=== PATIENT | female | born 1985 | race Caucasian/White ===

== ENCOUNTER 2021-01-31 16:54 | Emergency (ER) | payer OTHER ==
[2021-01-31 18:01] LABS: HEMOGLOBIN 14.3 gm/dl (12.3-15.3); RED BLOOD COUNT 4.98 M/UL (4.00-5.10)
[2021-01-31 18:14] LABS: BUN/CREATININE RATIO 30 (0-10)
[2021-01-31] MEDS ORDERED: ZOFRAN ODT 4 MG4 MG GT (20:15)
== END 2021-01-31 20:30 | disposition home or self-care (01) ==
LOC: ER1 16:54
PROVIDERS: Family Medicine
DX: R11.2 Nausea with vomiting, unspecified (principal); R74.8 Abnormal levels of other serum enzymes
CPT/HCPCS: 80053; 81001; 83690; 85025; 93005; 96374; 96375; 99284; J0461; J1885; J2405; J7120